=== PATIENT | male | born 1995 | race Caucasian/White ===

== ENCOUNTER 2020-06-08 08:00 | Outpatient (CLI) | payer OTHER ==
[2020-06-08 18:07] LABS: BASOPHILS % (AUTO) 0.4 %; EOSINOPHILS # (AUTO) 0.3 10^3/uL (0.0-0.7); EOSINOPHILS % (AUTO) 2.9 %; HGB - HEMOGLOBIN 14.8 g/dL (14.0-18.0); LYMPHOCYTES # (AUTO) 2.6 10^3/uL (1.5-3.5); LYMPHOCYTES % (AUTO) 24.4 %; MEAN CORPUSCULAR HEMOGLOBIN 31.6 pg (27.0-31.0); MEAN CORPUSCULAR HGB CONC 33.6 g/dL (32.0-36.0); MEAN CORPUSCULAR VOLUME 93.8 fL (80.0-94.0); MEAN PLATELET VOLUME 10.2 fL (7.4-11.4); MONOCYTES # (AUTO) 0.6 10^3/uL (0.0-1.0); MONOCYTES % (AUTO) 5.8 %; NEUTROPHILS % (AUTO) 66.3 %; PLT - PLATELET COUNT 251 10^3/uL (130-450); RED BLOOD COUNT 4.69 10^6/uL (4.70-6.10); RED CELL DISTRIBUTION WIDTH 11.9 % (12.0-15.0); WHITE BLOOD COUNT 10.5 x10^3/uL (4.8-10.8)
== END 2020-06-08 23:59 | disposition home or self-care (01) ==
LOC: LAB.S 08:00
PROVIDERS: ATTEND Physician Assistant Medical
DX: R19.09 Other intra-abdominal and pelvic swelling, mass and lump (principal)
CPT/HCPCS: 36415; 85025; 85651

== ENCOUNTER 2020-06-08 22:05 | Outpatient (CLI) | payer OTHER ==
--- NOTE | 2020-06-09 10:29 | Ultrasound Report ---
PROCEDURE: Pelvic Male INDICATIONS: Palpable lump, right pelvis/groin area noted x2-3 days TECHNIQUE: Right groin region interrogated with a high megahertz linear transducer. COMPARISON: None. FINDINGS: No inguinal hernia identified. The palpable lump corresponds to a prominent inguinal lymph node measu ring 3.1 x 1.0 x 2.3 cm. It has a fatty hilum. IMPRESSION: Palpable lump corresponds to a prominent right inguinal lymph node measuring 3.1 x 1.0 x 2.3 cm. Reviewed by: Don Griffiths MD on 06/09/2020 9:27 AM JIMENEZ Approved by: Don Griffiths MD on 06/09/2020 9:27 AM JIMENEZ Station ID: [id number]
== END 2020-06-08 22:06 | disposition home or self-care (01) ==
LOC: DI 22:05
PROVIDERS: ATTEND Physician Assistant Medical
DX: R19.09 Other intra-abdominal and pelvic swelling, mass and lump (principal)

== ENCOUNTER 2020-06-12 17:36 | Outpatient (CLI) | payer OTHER ==
[2020-06-12 20:01] LABS: BASOPHILS # (AUTO) 0.1 10^3/uL (0.0-0.1); BASOPHILS % (AUTO) 0.6 %; EOSINOPHILS # (AUTO) 0.5 10^3/uL (0.0-0.7); EOSINOPHILS % (AUTO) 5.6 %; HCT - HEMATOCRIT 42.4 % (42.0-52.0); HGB - HEMOGLOBIN 14.1 g/dL (14.0-18.0); LYMPHOCYTES % (AUTO) 32.9 %; MEAN CORPUSCULAR HEMOGLOBIN 31.3 pg (27.0-31.0); MEAN CORPUSCULAR HGB CONC 33.3 g/dL (32.0-36.0); MEAN PLATELET VOLUME 10.2 fL (7.4-11.4); MONOCYTES # (AUTO) 0.6 10^3/uL (0.0-1.0); NEUTROPHILS # (AUTO) 4.8 10^3/uL (1.5-6.6); NEUTROPHILS % (AUTO) 53.6 %; PLT - PLATELET COUNT 242 10^3/uL (130-450); RED BLOOD COUNT 4.51 10^6/uL (4.70-6.10); RED CELL DISTRIBUTION WIDTH 11.9 % (12.0-15.0)
[2020-06-12 20:21] LABS: ALBUMIN 4.6 g/dL (3.2-5.5); ALKALINE PHOSPHATASE 43 IU/L (42-121); ALT ALANINE AMINOTRANSFERASE 15 IU/L (10-60); AST ASPARTATE AMINOTRANSFERASE 14 IU/L (10-42); BILIRUBIN,TOTAL 0.5 mg/dL (0.2-1.0); BUN - BLOOD UREA NITROGEN 19 mg/dL (6-20); CALCIUM 9.3 mg/dL (8.5-10.3); CARBON DIOXIDE - CO2 28 mmol/L (21-32); CHLORIDE 102 mmol/L (101-111); CREATININE 0.9 mg/dL (0.6-1.2); GFR - MDRD 105 (>89); GLUCOSE 93 mg/dL (70-100); SODIUM 137 mmol/L (135-145); TOTAL PROTEIN 6.9 g/dL (6.7-8.2)
[2020-06-12 20:33] LABS: CRP - C-REACTIVE PROTEIN < 1.0 mg/dL (0-1.0)
== END 2020-06-12 17:37 | disposition home or self-care (01) ==
LOC: LAB.S 17:36
PROVIDERS: ATTEND Physician Assistant Medical
DX: R19.09 Other intra-abdominal and pelvic swelling, mass and lump (principal)
CPT/HCPCS: 36415; 80053; 85025; 85651; 86140